=== PATIENT | female | born 1995 | race Caucasian/White ===

== ENCOUNTER 2017-09-22 23:16 | Emergency (ER) | payer OTHER ==
[~2017-09-22] VITALS: Ht 170.1 cm; Wt 78.9 kg
[~2017-09-22 23:16] MED LIST: BACTRIM DS 8001 TA1 PO; CATAFLAM50 MG PO; CETIRIZINE10 MG PO; DEPO PROVER150 MG/M1 IM; FLEXERIL5 MG PO; IBUPROFEN600 MG PO; LAMOTRIGINE25 MG PO; MOTRIN600 MG PO; PROAIR HFA8.5 GM INH; SERTRALINE HYDR50 MG PO; SINGULAIR10 M1 PO; SYMBICORT1 AE1 INH; TRAZODONE50 MG PO
[2017-09-22 23:24] VITALS: BP 145/87
[2017-09-23] MEDS ORDERED: AMOXICILLIN500 M2 PO (00:02)
[2017-09-23] MEDS ORDERED: Motrin,Rufen400 MG PO (00:02)
== END 2017-09-23 00:45 | disposition home or self-care (01) ==
LOC: ED 23:16 → EDHOLD 23:22 → ED 09-23 00:45
DX: J02.9 Acute pharyngitis, unspecified (principal); J32.9 Chronic sinusitis, unspecified; F17.200 Nicotine dependence, unspecified, uncomplicated; Z79.899 Other long term (current) drug therapy; Z88.5 Allergy status to narcotic agent